=== PATIENT | female | born 1960 | race Caucasian/White ===

== ENCOUNTER 2021-03-02 08:46 | Emergency (ER) | payer MEDICARE, SELFPAY ==
[2021-03-02 09:20] VITALS: BP 162/80; PULSE 68; RESP 16; TEMP 36.8; O2SAT 98; BMI 32.8
[2021-03-02 09:39] VITALS: BP 141/61; PULSE 66; RESP 17; O2SAT 96
--- NOTE | 2021-03-02 09:45 | CT_ITS ---
WS: [id number] Exam: CT abdomen pelvis w con* [id number] Date/Time of Exam: 03/02/2021 10:35 AM Reason For Exam: abd pain DLP: 1651.[address] scans at [facility] use at least one of these dose optimization techniques: automat ed exposure control; mA and/or kV adjustment per patient size (includes targeted exams where dose is matched to clinical indication); or iterative reconstruction. 4.6 mm pleural-based nodule in the medial aspect of the posterior basal segment of the right lower lo be. There is also 4.6 mm pleural-based nodule in the posterior basal segment of the left lower lobe. Remaining lower lung zones are clear. The spleen is enlarged and measures 16 cm at greatest dimension . The liver, gallbladder and pancreas appear normal. The abdominal aorta is normal in caliber. Normal adrenal glands. Small bilateral renal cysts. No renal obstruction. The portal vein and IVC are paten t. Splenic varices noted. Gastric varices noted. The stomach is otherwise unremarkable as visualized. Small bowel loops are not dilated. Normal appendix visualized. No lymphadenopathy or free air. Sigmo id diverticulosis. No sign of acute diverticulitis. No pelvic mass or lymphadenopathy. The uterus is surgically absent. Unremarkable urinary bladder. Mild abdominal wall varices. No destructive bone les ions. Moderate degenerative change of the lumbar spine. Mild spinal canal stenosis at the L1-2 disc l evel secondary to posterior osteophyte formation and mild retrolisthesis of L1 on L2. CT/CT abdomen pelvis w con* [id number] IMPRESSION: 1. 4.6 mm noncalcified pleural-based nodules in both lower lobes which are inde terminate. If the patient is considered high risk for lung cancer, a dedicated nonemergent chest CT should be considered for further workup. Otherwise follow- up in 6-8 months might be considered. 2. Splenomegaly. 3. Splenic, gastric, mesenteric and abdominal wall varices suggesting portal hy pertension. 4. Sigmoid diverticulosis.
[2021-03-02 09:49] LABS: Basophils % 0.4 %; Eosinophils # 0.1 10^3/uL (0.0-0.8); Eosinophils % 1.6 %; Hematocrit 37.7 % (37.0-47.0); Hemoglobin 11.9 g/dL (11.5-15.3); Lymphocytes # 1.3 10^3/uL (0.8-4.8); Lymphocytes % 22.2 %; Mean Corpuscular HGB Conc 31.6 g/dL (30.0-36.0); Mean Corpuscular Hemoglobin 28.1 pg (28.0-34.0); Mean Corpuscular Volume 89.1 fl (81-99); Mean Platelet Volume 9.5 fL (7.4-10.4); Monocytes # 0.5 10^3/uL (0.2-0.9); Monocytes % 8.5 %; Neutrophils # 3.78 10^3/uL (1.8-7.7); Neutrophils % 67.1 %; Nucleated Red Blood Cells % 0 %; Platelet Count 69 10^3/cmm (130-400); Red Blood Count 4.23 10^6/uL (4.1-5.3); Red Cell Distribution Width 15.7 % (12.1-15.1); White Blood Count 5.6 10^3/uL (4.0-10.0)
--- NOTE | 2021-03-02 09:51 | W.ED.ABDPA2 ---
HPI - Abdominal Pain General: Chief Complaint: Abdominal Pain Stated Complaint: abd pain, vomiting Time Seen by Provider: 03/02/21 08:52 History of Present Illness: HPI narrative: 58-year-old female presents emergency room complaining of diffuse upper abdominal pain with vomiting. Patient has a history of Robert. She states she has been evaluated for esophageal varices but does not have any. She also has a history of diabetes mellitus. Most of her pain is in the epigastric area. Her primary care doctor sent here because they were concerned about pancreatitis. She denies any hematemesis coffee-ground emesis no fever sweats or chills. Symptoms began over the last couple of days. MD elicited complaint: abdominal pain Pertinent past history: other (ROBERT) Onset (ago): day(s) Pain Consistency: constant Severity: moderate Quality: cramping Radiation: RUQ Exacerbating factors: nothing Relieving factors: nothing Associated Symptoms: Reports anorexia, bloating, change in bowel habits, GI cramping, diarrhea, nausea, poor appetite and vomiting; Denies belching, change in stool character, chills, coffee ground emesis, constipation, dyspepsia, dysuria, excessive flatus, fever(s), heartburn, hematochezia, hematuria, hematemesis, fecal incontinence, loose stools, melena and syncope Review of Systems Const: Denies: fever(s) or chills ENMT: Denies: throat pain, ear or mastoid pain, nasal discharge or nasal congestion Card: Denies: syncope Resp: Denies: dyspnea, productive cough or non-productive cough GI: Reports: nausea, vomiting, diarrhea, bloating, GI cramping and change in bowel habits; Denies: hematemesis, coffee ground emesis, heartburn, constipation, belching, excessive flatus, fecal incontinence, change in stool character, hematochezia or melena : Denies: dysuria or hematuria Skin/Breast: Denies: rash or pruritus PFSH ED PFSH: Medical History (Updated 03/02/21 @ 12:25 by Jeffrey Dominguez DO) Diabetes mellitus ROBERT (nonalcoholic steatohepatitis) Physical Exam Const: COMMON NORMALS: no acute distress GENERAL APPEARANCE: cooperative and comfortable ORIENTATION/CONSCIOUSNESS: Yes awake, Yes oriented to person, Yes oriented to place and Yes oriented to time HENMT: COMMON NORMALS: normocephalic, atraumatic and hearing grossly normal bilaterally HEAD & SCALP: normocephalic and atraumatic Neck/C-Spine: COMMON NORMALS: no JVD Resp: COMMON NORMALS: normal respiratory effort, No retractions, No use of accessory muscles and clear to auscultation bilaterally AUSCULTATION: clear to auscultation bilaterally Cardio: COMMON NORMALS: no JVD, regular rate, regular rhythm and No murmurs present (Cardio) RATE: regular rate RHYTHM: regular rhythm GI: COMMON NORMALS: Soft to palpation and No hepatosplenomegaly present AUSCULTATION: Yes normoactive bowel sounds PALPATION: Yes Soft to palpation, Yes Tenderness to palpation present (GI) (Epigastric) Details: RUQ, No Guarding due to palpation present (GI) and Yes No hepatosplenomegaly present Extremity: COMMON NORMALS: normal to inspection, capillary refill normal, no clubbing, cyanosis or edema, no calf tenderness and no pedal edema Neuro: SENSORIUM/ORIENTATION: Yes oriented to person, Yes oriented to place and Yes oriented to time Skin: COMMON NORMALS: no rashes or lesions noted GENERAL SKIN EXAM: no rashes or lesions noted Course Vital Signs: Vital signs: Vital Signs Temperature 98.2 F 03/02/21 09:20 Pulse Rate 61 03/02/21 12:46 Respiratory Rate 17 03/02/21 09:39 Blood Pressure 156/62 03/02/21 12:46 Pulse Oximetry 100 03/02/21 12:46 MDM - Abdominal Pain MDM Narrative: Medical decision making narrative: Reviewed labs and imaging findings.There is a slight bump in the lipase but not consistent with an acute pancreatitis.CT does not show evidence of acute pancreatitis. There is questionable nodules at the base the lungs which she should have followed up as an outpatient. Lab Data: Labs: Lab Results 03/02/21 03/02/21 03/02/21 Range/Units 09:30 09:39 09:39 WBC (4.0-10.0) 10^3/ uL RBC (4.1-5.3) 10^6/u L Hgb (11.5-15.3) g/dL Hct (37.0-47.0) % MCV (81-99) fl MCH (28.0-34.0) pg MCHC (30.0-36.0) g/dL RDW (12.1-15.1) % Plt Count (130-400) 10^3/c mm MPV (7.4-10.4) fL Neut % (Auto) % Lymph % (Auto) % [place] % (Auto) % Eos % (Auto) % Baso % (Auto) % Neut # (Auto) (1.8-7.7) 10^3/u L Lymph # (Auto) (0.8-4.8) 10^3/u L [place] # (Auto) (0.2-0.9) 10^3/u L Eos # (Auto) (0.0-0.8) 10^3/u L Baso # (Auto) (0.0-0.1) 10^3/u L Nucleated RBC % (a uto) % Nucleated RBCs # /100WBC PT 15.10 H (12.1-14.9) SECO NDS INR 1.16 (0.8-1.2) Sodium (136-145) mmol/L Potassium (3.5-5.1) mmol/L Chloride (98-107) mmol/L Carbon Dioxide (22-29) mmol/L Anion Gap (5-19) BUN (8-23) mg/dL Creatinine (0.5-0.9) mg/dL GFR Calculation (90-130) mL/min Glucose (65-115) mg/dL Calculated Osmolal ity (285-295) mOsm/k g Lactic Acid (0.5-2.2) mmol/L Calcium (8.5-10.5) mg/dL Total Bilirubin (0.15-1.2) mg/dL AST (0-32) U/L ALT (0-33) U/L Alkaline Phosphata se (35-105) IU/L Ammonia 75 H (11-51) umol/L Total Protein (6.6-8.7) g/dL Albumin (3.5-5.2) g/dL Globulin (1.3-4.6) g/dL Lipase (13-60) U/L Urine Color Yellow (Yellow) Urine Appearance Clear (CLEAR) Urine pH 5 (5-7) Ur Specific Gravit y 1.020 (1.005-1.030) Urine Protein 2+ H (Negative) Urine Glucose (UA) Norm (Normal) Urine Ketones Negative (Negative) Urine Blood Neg (Negative) Urine Nitrate Negative (Negative) Urine Bilirubin Neg (Negative) Urine Urobilinogen 1 H (Negative) mg/dL Ur Leukocyte Josseline ase Negative (Negative) Urine RBC None (0-2) /hpf Urine WBC 10-15 H (0-5) /hpf Ur Squamous Epith Cells 5-10 H (0-5) /hpf Amorphous Sediment Not Reportable Urine Bacteria 1+ H (NONE) /hpf 03/02/21 03/02/21 03/02/21 Range/Units 09:39 09:39 09:39 WBC 5.6 (4.0-10.0) 10^3/ uL RBC 4.23 (4.1-5.3) 10^6/u L Hgb 11.9 (11.5-15.3) g/dL Hct 37.7 (37.0-47.0) % MCV 89.1 (81-99) fl MCH 28.1 (28.0-34.0) pg MCHC 31.6 (30.0-36.0) g/dL RDW 15.7 H (12.1-15.1) % Plt Count 69 L (130-400) 10^3/c mm MPV 9.5 (7.4-10.4) fL Neut % (Auto) 67.1 % Lymph % (Auto) 22.2 % [place] % (Auto) 8.5 % Eos % (Auto) 1.6 % Baso % (Auto) 0.4 % Neut # (Auto) 3.78 (1.8-7.7) 10^3/u L Lymph # (Auto) 1.3 (0.8-4.8) 10^3/u L [place] # (Auto) 0.5 (0.2-0.9) 10^3/u L Eos # (Auto) 0.1 (0.0-0.8) 10^3/u L Baso # (Auto) 0.0 (0.0-0.1) 10^3/u L Nucleated RBC % (a uto) 0 % Nucleated RBCs # 0.0 /100WBC PT (12.1-14.9) SECO NDS INR (0.8-1.2) Sodium 138 (136-145) mmol/L Potassium 4.2 (3.5-5.1) mmol/L Chloride 101 (98-107) mmol/L Carbon Dioxide 26 (22-29) mmol/L Anion Gap 15.2 (5-19) BUN 21 (8-23) mg/dL Creatinine 0.8 (0.5-0.9) mg/dL GFR Calculation 72.7 L (90-130) mL/min Glucose 244 H (65-115) mg/dL Calculated Osmolal ity 297 H (285-295) mOsm/k g Lactic Acid 2.8 H (0.5-2.2) mmol/L Calcium 10.0 (8.5-10.5) mg/dL Total Bilirubin 1.1 (0.15-1.2) mg/dL AST 40 H (0-32) U/L ALT 24 (0-33) U/L Alkaline Phosphata se 113 H (35-105) IU/L Ammonia (11-51) umol/L Total Protein 6.7 (6.6-8.7) g/dL Albumin 3.4 L (3.5-5.2) g/dL Globulin 3.3 (1.3-4.6) g/dL Lipase 75 H (13-60) U/L Urine Color (Yellow) Urine Appearance (CLEAR) Urine pH (5-7) Ur Specific Gravit y (1.005-1.030) Urine Protein (Negative) Urine Glucose (UA) (Normal) Urine Ketones (Negative) Urine Blood (Negative) Urine Nitrate (Negative) Urine Bilirubin (Negative) Urine Urobilinogen (Negative) mg/dL Ur Leukocyte Josseline ase (Negative) Urine RBC (0-2) /hpf Urine WBC (0-5) /hpf Ur Squamous Epith Cells (0-5) /hpf Amorphous Sediment Urine Bacteria (NONE) /hpf Discharge Plan Discharge Patient Disposition: Home Clinical Impression: ROBERT (nonalcoholic steatohepatitis), Diabetes mellitus, Pancreatitis Condition: Stable Prescriptions: New hydrocodone-acetaminophen 5-325 mg tablet 1 tab PO Q6H PRN (Reason: pain) Qty: 15 RF: 0 Zofran 4 mg tablet 4 mg PO Q6H PRN (Reason: nausea and vomiting) Qty: 15 RF: 0 No Action Vitamin B-12 2,500 mcg Tablet, Sublingual 2,500 mcg SUBLINGUAL QAM RF: 0 spironolactone 25 mg tablet 25 mg PO QAM RF: 0 propranolol 40 mg tablet 40 mg PO BID RF: 0 metformin 1,000 mg tablet 1,000 mg PO BID RF: 0 fluoxetine 10 mg capsule 10 mg PO QAM RF: 0 lovastatin 20 mg tablet 10 mg PO BEDTIME RF: 0 chromium 1,000 mcg Tablet 1,000 mcg PO QAM RF: 0 Lantus Solostar U-100 Insulin 100 unit/mL (3 mL) insulin pen 15 unit SUBCUT BID RF: 0 ferrous sulfate 140 mg (45 mg iron) Tablet Extended Release 45 mg PO QAM RF: 0 Discharge Orders: Discharge ED (Routine); Ordered 03/02/21 Ordered By: Jeffrey Dominguez Referrals: Nadya Manning DO [Primary Care Provider] - Discharge Diet: Clear Liquid Discharge Activity: Limit activity as instructed Patient Instructions: Opioid Safety Activity Restrictions/Additional Instructions: Clear liquid diet for the next 48 to 72 hours then advance as tolerated monitor blood sugars closely. Decrease your insulin to 5 units of Lantus at night while on the clear liquid diet. Monitor your blood sugars closely and adjust with short acting insulin. Follow-up with your primary care doctor in 2 days. Return to the emergency room if have any further problems. Coding Level of Care Code ED Warehouse Production Worker for Radha Vieira Exam Comprehensive
[2021-03-02 10:03] LABS: INR 1.16 (0.8-1.2)
[2021-03-02 10:11] LABS: Ammonia 75 umol/L (11-51); Lactic Sepsis W/Reflex 2.8 mmol/L (0.5-2.2)
[2021-03-02 10:12] LABS: Alanine Aminotransferase 24 U/L (0-33); Albumin Level 3.4 g/dL (3.5-5.2); Alkaline Phosphatase 113 IU/L (35-105); Anion Gap 15.2 (5-19); Aspartate Amino Transferase 40 U/L (0-32); Blood Urea Nitrogen 21 mg/dL (8-23); Carbon Dioxide 26 mmol/L (22-29); Chloride 101 mmol/L (98-107); Globulin 3.3 g/dL (1.3-4.6); Glomerular Filtration Rate 72.7 mL/min (90-130); Glucose 244 mg/dL (65-115); Lipase 75 U/L (13-60); Osmolality Calculated 297 mOsm/kg (285-295); Potassium 4.2 mmol/L (3.5-5.1); Sodium 138 mmol/L (136-145); Total Bilirubin 1.1 mg/dL (0.15-1.2); Total Protein 6.7 g/dL (6.6-8.7)
[2021-03-02 10:17] LABS: Add Urine Culture? No; Add Urine Microscopic? YES; Bacteria Urine 1+ /hpf; Bilirubin Urine Neg (Negative); Blood Urine Neg (Negative); Glucose Urine UA Norm (Normal); Ketones Urine Negative (Negative); Leukocyte Esterase Urine Negative (Negative); Nitrate Urine Negative (Negative); Protein Urine 2+ (Negative); Urine Appearance Clear (CLEAR); Urine Color Yellow (Yellow); Urobilinogen Urine 1 mg/dL (Negative); pH Urine 5 (5-7)
[2021-03-02] MEDS: iohexol 300 mg/mL 100 mL Btl IV (10:45)
--- NOTE | 2021-03-02 11:17 | PC.PHAR ---
pt states her takes care of her medications-pt brought in med bottle dated 03/10/2020 for lovastatin 20mg hs pt states she had a build up-rx filled for 20mg hs pt states she only takes 10mg hs-notes are made in the pharmacy comments
[2021-03-02 11:35] LABS: Reflex Lactate Order REFLEX LACTIC ORDERD
[2021-03-02 12:46] VITALS: BP 156/62; PULSE 61; O2SAT 100
--- NOTE | 2021-03-08 14:54 | DCPLANNER ---
it infrastructure project manager had message to schedule a follow up appointment for patient with pulmonology. it infrastructure project manager called [facility], spoke with Yael, gave clinic patients information. A follow up appointment was scheduled for Sunday, March 30, 2021 at 1:[address] Ahn. it infrastructure project manager called phone number [phone], unable to speak with patient at this time, a voicemail was left for patient with the appointment information and for patient to return oil field caser phone call.
--- NOTE | 2021-04-01 11:33 | DCPLANNER ---
Patient had a follow up appointment scheduled for 03.30.21 with [facility] - patient did not attend appointment.
== END 2021-03-02 12:47 | disposition home or self-care (01) ==
PROVIDERS: Emergency Provider Family Medicine; PCP Family Medicine
DX: K85.90 Acute pancreatitis without necrosis or infection, unspecified (principal); K75.81 Nonalcoholic steatohepatitis (NASH); E11.9 Type 2 diabetes mellitus without complications; Z79.84 Long term (current) use of oral hypoglycemic drugs
CPT/HCPCS: 74177; 80053; 81001; 82140; 83605; 83690; 85025; 85610; 99283; Q9967

== ENCOUNTER 2021-03-08 11:29 | Outpatient (CLI) | payer MEDICARE, SELFPAY ==
--- NOTE | 2021-03-08 11:38 | MM_ITS ---
WS: [id number] BILATERAL SCREENING DIGITAL MAMMOGRAM WITH CAD HISTORY: SCREENING COMPARISON: 09/02/2008 Bilateral CC and MLO views submitted. Computer aided detection analyzed. Breast composition: There are scattered areas of fibroglandular density. No suspicious masses, microc alcifications or architectural distortion. Benign calcification in the anterior RIGHT breast. MM/[place] [id number] IMPRESSION: BI-RADS: 2-Benign FOLLOW UP: 1 Year Follow-up
== END 2021-03-08 11:30 | disposition home or self-care (01) ==
LOC: RADSHAW 11:36
PROVIDERS: PCP Family Medicine; Visit Provider Family Medicine
DX: Z12.31 Encounter for screening mammogram for malignant neoplasm of breast (principal)
CPT/HCPCS: 77067

== ENCOUNTER → 2021-12-14 08:38 | Outpatient (BNVA) | payer MEDICARE, SELFPAY | PROVIDERS: PCP Family Medicine; Referring Provider Family Medicine; Visit Provider Internal Medicine | DX: E11.40 Type 2 diabetes mellitus with diabetic neuropathy, unspecified (principal); E11.319 Type 2 diabetes mellitus with unspecified diabetic retinopathy without macular edema; E78.2 Mixed hyperlipidemia; K75.81 Nonalcoholic steatohepatitis (NASH); Z79.4 Long term (current) use of insulin; Z79.84 Long term (current) use of oral hypoglycemic drugs; Z87.891 Personal history of nicotine dependence | CPT/HCPCS: 80053; 80061; 83036; 84681; 99204 ==

== ENCOUNTER → 2022-02-17 10:36 | Outpatient (BNVA) | payer MEDICARE, SELFPAY | PROVIDERS: PCP Family Medicine; Visit Provider Internal Medicine | DX: E11.319 Type 2 diabetes mellitus with unspecified diabetic retinopathy without macular edema (principal); E11.40 Type 2 diabetes mellitus with diabetic neuropathy, unspecified; E78.2 Mixed hyperlipidemia; K75.81 Nonalcoholic steatohepatitis (NASH); Z87.19 Personal history of other diseases of the digestive system; Z79.4 Long term (current) use of insulin; Z79.84 Long term (current) use of oral hypoglycemic drugs; Z87.891 Personal history of nicotine dependence | CPT/HCPCS: 99214 ==

== ENCOUNTER → 2022-06-06 10:16 | Outpatient (BNVA) | payer MEDICARE, SELFPAY | PROVIDERS: PCP Family Medicine; Visit Provider Internal Medicine | DX: E11.40 Type 2 diabetes mellitus with diabetic neuropathy, unspecified (principal); E11.319 Type 2 diabetes mellitus with unspecified diabetic retinopathy without macular edema; E78.2 Mixed hyperlipidemia; E55.9 Vitamin D deficiency, unspecified; K75.81 Nonalcoholic steatohepatitis (NASH); K74.60 Unspecified cirrhosis of liver; K86.2 Cyst of pancreas; Z79.4 Long term (current) use of insulin; Z79.84 Long term (current) use of oral hypoglycemic drugs; Z87.891 Personal history of nicotine dependence; Z87.19 Personal history of other diseases of the digestive system; Z79.899 Other long term (current) drug therapy | CPT/HCPCS: 36415; 80053; 80061; 82306; 83036; 99215 ==

== ENCOUNTER → 2022-09-06 10:37 | Outpatient (BNVA) | payer MEDICARE, SELFPAY | PROVIDERS: PCP Family Medicine; Visit Provider Internal Medicine | DX: E11.319 Type 2 diabetes mellitus with unspecified diabetic retinopathy without macular edema (principal); E11.40 Type 2 diabetes mellitus with diabetic neuropathy, unspecified; K75.81 Nonalcoholic steatohepatitis (NASH); E78.2 Mixed hyperlipidemia; E83.52 Hypercalcemia; Z79.4 Long term (current) use of insulin; Z79.84 Long term (current) use of oral hypoglycemic drugs | CPT/HCPCS: 99214 ==

== ENCOUNTER 2022-11-03 21:08 | Emergency (ER) | payer MEDICARE, SELFPAY ==
[2022-11-03] VITALS (16 sets, daily range): BP systolic 113–175; BP diastolic 52–73; PULSE 59–71; RESP 13–21; TEMP 36.5–36.6; O2SAT 93–99; BMI 30.9
[2022-11-03 22:01] LABS: Basophils # 0.1 10^3/uL (0.0-0.1); Basophils % 0.7 %; Eosinophils # 0.2 10^3/uL (0.0-0.8); Eosinophils % 3.1 %; Hematocrit 33.8 % (37.0-47.0); Hemoglobin 10.9 g/dL (11.5-15.3); Lymphocytes # 1.6 10^3/uL (0.8-4.8); Lymphocytes % 22.9 %; Mean Corpuscular HGB Conc 32.2 g/dL (30.0-36.0); Mean Corpuscular Hemoglobin 30.1 pg (28.0-34.0); Mean Corpuscular Volume 93.4 fl (81-99); Mean Platelet Volume 10.1 fL (7.4-10.4); Monocytes # 0.5 10^3/uL (0.2-0.9); Monocytes % 7.1 %; Neutrophils # 4.62 10^3/uL (1.8-7.7); Neutrophils % 65.8 %; Nucleated Red Blood Cells % 0 %; Platelet Count 90 10^3/cmm (130-400); Red Blood Count 3.62 10^6/uL (4.1-5.3); Red Cell Distribution Width 16.1 % (12.1-15.1)
--- NOTE | 2022-11-03 22:02 | ED_ITS ---
HPI - GI Bleed General: Chief complaint: GI Bleed Stated complaint: vomiting blood, abd pain Time Seen by Provider: 11/03/22 21:42 Source: patient Mode of arrival: ambulatory Limitations: no limitations History of Present Illness: 62-year-old female has a history of Robert along with esophageal varices. States she sees a GI physician she never had a bleed in the past states an hour ago she started vomiting bright red blood she does have a baggy here with a blood in it she also is having dark-colored stools. She denies any pain she had some lightheadedness her vital signs here are normal she denies any worsening proving factors. Associated symptoms: Reports nausea and vomiting; Denies abdominal pain, chills, easy bruising, fever(s), headache(s) or rash Review of Systems Const: Denies: fever(s), chills, body aches or change in appetite Eyes: Denies: blurry vision or eye discomfort ENMT: Denies: throat pain or dental pain Card: Denies: chest pain Resp: Denies: dyspnea GI: Reports: nausea, vomiting and hematochezia; Denies: abdominal pain or diarrhea : Denies: dysuria Musc: Denies: neck pain or back pain Skin/Breast: Denies: rash Neuro: Denies: headache(s) Psych: Denies: depression Geo/Lymph: Denies: easy bruising All/Imm: Denies: urticaria PFSH ED PFSH: Medical History Diabetes mellitus ROBERT (nonalcoholic steatohepatitis) Family History Father Cancer Mother Cancer Social History Smoking and tobacco status: former smoker Quit status (tobacco): has quit using tobacco Second hand smoke exposure: No Smoking risk assessment/counseling performed?: No Alcohol intake: former Desire information about alcohol rehabilitation?: No Counseling given: No Substance/Drug Use: never Desire information about substance/drug rehabilitation?: No Counseling given: No Adopted: No Caregiver/support person: No Lives independently: Yes Household members: spouse Housing: House Marital status: Number of children: 1 Highest education level completed: High School Graduate service: No Current occupational status: disabled Physical Exam Const: COMMON NORMALS: patient oriented x3 HENMT: COMMON NORMALS: normocephalic and atraumatic HEAD & SCALP: normocephalic and atraumatic Eye: COMMON NORMALS: conjunctivae normal CONJUNCTIVA: Yes conjunctivae normal Neck/C-Spine: COMMON NORMALS: full ROM and supple Chest: COMMONS NORMALS: normal inspection of the chest and normal palpation of entire chest wall Resp: COMMON NORMALS: normal respiratory effort, No retractions, No use of accessory muscles and clear to auscultation bilaterally AUSCULTATION: clear to auscultation bilaterally Cardio: COMMON NORMALS: regular rate, regular rhythm and No murmurs present (Cardio) RATE: regular rate RHYTHM: regular rhythm GI: COMMON NORMALS: Normal to inspection, nondistended, normoactive bowel sounds present, Soft to palpation, non-tender and no masses PALPATION: Yes Soft to palpation Extremity: COMMON NORMALS: normal to inspection and full ROM Neuro: COMMON NORMALS: patient oriented x3, moves all extremities and no focal motor deficits Psych: COMMON NORMALS: mental status grossly normal, Normal thought process present and cooperative THOUGHT PROCESS: Normal thought process present Skin: COMMON NORMALS: no rashes or lesions noted and no wounds GENERAL SKIN EXAM: no rashes or lesions noted Course Vital Signs: Vital signs: Vital Signs Temperature 97.8 F 11/03/22 21:19 Pulse Rate 59 L 11/03/22 22:18 Respiratory Rate 16 11/03/22 22:18 Blood Pressure 175/68 11/03/22 22:18 Pulse Oximetry 97 11/03/22 22:18 Oxygen Delivery Me thod Room Air 11/03/22 22:18 MDM - GI Bleed Medical Decision Making Patient presents here with upper GI bleed she does have a history of varices she has not vomited bright red blood moderate amount she has some lightheadedness when she stands her hemoglobin here is benign her blood pressures been normal but she does have some symptoms they are not flying swab transfer by ground so we will go ahead and give her 1 unit of blood for transfer she has been on octreotide along with Protonix I spoke to [facility] will transfer there for high-level care for GI capability. Lab Data 11/03/22 21:34 11/03/22 21:34 Laboratory Results WBC 7.0 10^3/uL (4.0-10.0) 11/03/22 21:34 RBC 3.62 10^6/uL (4.1-5.3) L 11/03/22 21:34 Hgb 10.9 g/dL (11.5-15.3) L 11/03/22 21: Hct 33.8 % (37.0-47.0) L 11/03/22 21: MCV 93.4 fl (81-99) 11/03/22 21: MCH 30.1 pg (28.0-34.0) 11/03/22 21: MCHC 32.2 g/dL (30.0-36.0) 11/03/22 21: RDW 16.1 % (12.1-15.1) H 11/03/22 21: Plt Count 90 10^3/cmm (130-400) L 11/03/22: MPV 10.1 fL (7.4-10.4) 11/03/22 21:34 Neut % (Auto) 65.8 % 11/03/22 21: Lymph % (Auto) 22.9 % 11/03/22 21:34 [place] % (Auto) 7.1 % 11/03/22 21: Eos % (Auto) 3.1 % 11/03/22 21:34 Baso % (Auto) 0.7 % 11/03/22 21: Neut # (Auto) 4.62 10^3/uL (1.8-7.7) 11/03/22 21: Lymph # (Auto) 1.6 10^3/uL (0.8-4.8) 11/03/22 21:34 [place] # (Auto) 0.5 10^3/uL (0.2-0.9) 11/03/22 21: Eos # (Auto) 0.2 10^3/uL (0.0-0.8) 11/03/22 21: Baso # (Auto) 0.1 10^3/uL (0.0-0.1) 11/03/22 21: Nucleated RBC % (auto) 0 % 11/03/22 21: Nucleated RBCs # 0.0 /100WBC 04/28/23 21:34 PT 16.10 SECONDS (12.1-14.9) H 11/03/22 21:34 INR 1.25 (0.8-1.2) H 11/03/22 21:34 Sodium 140 mmol/L (136-145) 11/03/22 21:34 Potassium 4.3 mmol/L (3.5-5.1) 11/03/22 21:34 Chloride 104 mmol/L (98-107) 11/03/22 21:34 Carbon Dioxide 28 mmol/L (22-29) 11/03/22 21:34 Anion Gap 12.3 (5-19) 11/03/22 21:34 BUN 19 mg/dL (8-23) 11/03/22 21:34 Creatinine 0.9 mg/dL (0.5-0.9) 11/03/22 21:34 GFR Calculation 63.0 mL/min (90-130) L 11/03/22 21:34 Glucose 263 mg/dL (65-115) H 11/03/22 21:34 Calculated Osmolality 301 mOsm/kg (285-295) H 11/03/22 21:34 Calcium 8.7 mg/dL (8.5-10.5) 11/03/22 21:34 Total Bilirubin 1.8 mg/dL (0.15-1.2) H 11/03/22 21:34 AST 58 U/L (0-32) H 11/03/22 21:34 ALT 33 U/L (0-33) 11/03/22 21:34 Alkaline Phosphatase 140 U/L (35-105) H 11/03/22 21:34 Total Protein 5.5 g/dL (6.6-8.7) L 11/03/22 21:34 Albumin 3.0 g/dL (3.5-5.2) L 11/03/22 21:34 Globulin 2.5 g/dL (1.3-4.6) 11/03/22 21:34 Lipase 108 U/L (13-60) H 11/03/22 21:34 Critical Care Time Critical Care Time: Critical Care Time: Yes Total Critical Care Time: 45 Attestation: The high probability of a clinically significant, sudden or life threatening deterioration of the patient's gi system(s) required my full and direct attention, intervention and personal management. The critical care time is as s hown. This time is in addition to time spent performing any reported procedures but includes the following: [x] Data and vital sign review and interpretation [x] Patient assessment, examination and intervention [x] Documentation [x] Medication orders and management Discharge Plan Discharge Patient Disposition: Xfer Short-Term Hosp Clinical Impression: Esophageal varices, Upper gastrointestinal hemorrhage Condition: Stable Referrals: Nadya Manning DO [Primary Care Provider] - Coding Level of Care Code ED Electrical Discharge Machine Operator for Tahminag Isha
[2022-11-03] MEDS: octreotide 100 mcg/mL SDV 50 MCG IVP (22:03)
[2022-11-03] MEDS: sodium chloride 0.9% 1,000 ML 30 ML IV (22:07)
[2022-11-03] MEDS: octreotide 500 MCG in sodium chloride 0.9% (100 ml) 100 ML 10.1 MCG IV (22:07)
[2022-11-03 22:19] LABS: INR 1.25 (0.8-1.2)
[2022-11-03 22:25] LABS: Alanine Aminotransferase 33 U/L (0-33); Alkaline Phosphatase 140 U/L (35-105); Aspartate Amino Transferase 58 U/L (0-32); Blood Urea Nitrogen 19 mg/dL (8-23); Calcium 8.7 mg/dL (8.5-10.5); Carbon Dioxide 28 mmol/L (22-29); Chloride 104 mmol/L (98-107); Globulin 2.5 g/dL (1.3-4.6); Glucose 263 mg/dL (65-115); Lipase 108 U/L (13-60); Osmolality Calculated 301 mOsm/kg (285-295); Sodium 140 mmol/L (136-145); Total Bilirubin 1.8 mg/dL (0.15-1.2); Total Protein 5.5 g/dL (6.6-8.7)
[2022-11-03 22:33] LABS: Anion Gap 12.3 (5-19); Potassium 4.3 mmol/L (3.5-5.1)
[2022-11-03] MEDS: pantoprazole 40 mg SDV 80 MG IVP (23:00)
[2022-11-03] MEDS: pantoprazole 40 MG in sodium chloride 0.9% (plus) 100 ML 20 MG IV (23:08)
--- NOTE | 2022-11-04 00:04 | PC.NURSE ---
pt being transferred to [facility], report called to Anayeli
== END 2022-11-04 00:08 | disposition short-term general hospital (02) ==
PROVIDERS: Emergency Provider Emergency Medicine; PCP Family Medicine
DX: I85.00 Esophageal varices without bleeding (principal); K92.2 Gastrointestinal hemorrhage, unspecified; E11.9 Type 2 diabetes mellitus without complications; Z87.891 Personal history of nicotine dependence
CPT/HCPCS: 36430; 80053; 83690; 85025; 85610; 86850; 86900; 86920; 96365; 96366; 96367; 96375; 99284; C9113; J2354; J7030; P9016

== ENCOUNTER → 2022-12-12 10:35 | Outpatient (BNVA) | payer MEDICARE, SELFPAY | PROVIDERS: PCP Family Medicine; Visit Provider Internal Medicine | DX: E11.40 Type 2 diabetes mellitus with diabetic neuropathy, unspecified (principal); E11.319 Type 2 diabetes mellitus with unspecified diabetic retinopathy without macular edema; E78.2 Mixed hyperlipidemia; K75.81 Nonalcoholic steatohepatitis (NASH); E83.52 Hypercalcemia; Z79.4 Long term (current) use of insulin; Z79.84 Long term (current) use of oral hypoglycemic drugs | CPT/HCPCS: 99214 ==